=== PATIENT | male | born 1985 | race African-American/Black ===

== ENCOUNTER 2020-08-02 14:45 | Emergency (ER) | payer MEDICAID, OTHER ==
[~2020-08-02] VITALS: Ht 188 cm; Wt 92.1 kg
[2020-08-02 16:14] LABS: Urine Bacteria NONE SEEN /hpf (None Seen); Urine Blood 2+ /uL (Negative); Urine Mucus FEW (None Seen); Urine Specific Gravity 1.027 (1.001-1.035); Urine WBC 2 /hpf (0 - 3)
[2020-08-02 17:39] VITALS: BP 127/84
== END 2020-08-02 17:40 | disposition home or self-care (01) ==
LOC: ER 14:45
DX: R31.9 Hematuria, unspecified (principal)
CPT/HCPCS: 74176; 81001

== ENCOUNTER 2020-08-26 07:22 | Emergency (ER) | payer MEDICAID ==
[~2020-08-26] VITALS: Ht 188 cm; Wt 90.7 kg
[2020-08-26 09:02] VITALS: BP 144/88
== END 2020-08-26 09:23 | disposition home or self-care (01) ==
LOC: ER 07:22
DX: S82.51XA Displaced fracture of medial malleolus of right tibia, initial encounter for closed fracture (principal); W21.05XA Struck by basketball, initial encounter; Y93.67 Activity, basketball; Y92.89 Other specified places as the place of occurrence of the external cause; Y99.8 Other external cause status
CPT/HCPCS: 73610